=== PATIENT | male | born 1980 | race Caucasian/White ===

== ENCOUNTER 2017-11-30 10:09 | Emergency (ER) | payer OTHER ==
[~2017-11-30] VITALS: Ht 205.7 cm; Wt 108.9 kg
[~2017-11-30 10:09] MED LIST: ALBU90OI; AMIO200 PO; ASPI81CH PO; BUPR150ER PO; CEFD300 PO; Coreg6.25 MG PO; FURO20 PO; LISI5 PO; Micro-K10 MEQ PO; Prednisone20 MG PO
[2017-11-30] MEDS ORDERED: IBUP800 PO (11:19)
[2017-11-30] MEDS ORDERED: Robaxin500 MG PO (11:19)
== END 2017-11-30 11:22 | disposition home or self-care (01) ==
LOC: ER 10:09
DX: M62.830 Muscle spasm of back (principal); I11.0 Hypertensive heart disease with heart failure; I50.9 Heart failure, unspecified; F17.210 Nicotine dependence, cigarettes, uncomplicated; Z79.899 Other long term (current) drug therapy; Z79.82 Long term (current) use of aspirin
CPT/HCPCS: 99283

== ENCOUNTER 2019-12-28 07:11 | Emergency (ER) | payer OTHER ==
[~2019-12-28] VITALS: Ht 182.9 cm; Wt 113.4 kg
[~2019-12-28 07:11] MED LIST changes: +IBUP800 PO; +Robaxin500 MG PO
[2019-12-28 07:40] LABS: BASOPHILS ABSOLUTE AUTO 0.08 K/mm3 (0.00-0.23); BASOPHILS PERCENT AUTO 1 % (0-2); EOSINOPHILS ABSOLUTE AUTO 0.25 K/mm3 (0.00-0.68); EOSINOPHILS PERCENT AUTO 2 % (0-6); Hematocrit 49.8 % (37.0-53.0); Hemoglobin 16.4 g/dL (13.5-17.5); IMMATURE GRAN ABSOLUTE AUTO 0.08 K/mm3 (0.00-0.10); IMMATURE GRAN PERCENT AUTO 1 % (0-1); LYMPHOCYTES ABSOLUTE AUTO 2.62 K/mm3 (0.84-5.20); LYMPHOCYTES PERCENT AUTO 17 % (21-46); MONOCYTES ABSOLUTE AUTO 1.49 K/mm3 (0.16-1.47); MONOCYTES PERCENT AUTO 10 % (4-13); Mean Corpuscular HGB 29.8 pg (26.0-34.0); Mean Corpuscular HGB Conc 32.9 g/dL (31.5-36.5); Mean Corpuscular Volume 90 fL (80-100); Mean Platelet Volume 9.4 fL (9.1-12.4); NEUTROPHILS ABSOLUTE AUTO 10.98 K/mm3 (1.96-9.15); NEUTROPHILS PERCENT AUTO 71 % (41-73); Platelet Count 264 K/mm3 (150-400); RDW Coefficient Variation 13.8 % (11.7-14.2); RDW Standard Deviation 46.4 fL (35.1-46.3); Red Blood Cell Count 5.51 M/mm3 (4.30-5.90)
[2019-12-28 08:15] LABS: Alanine Aminotransfer (ALT/SGP 31 U/L (12-78); Albumin, Blood 4.3 g/dL (3.4-5.0); Albumin/Globulin Ratio 1.2 (0.8-1.8); Alk Phos 91 U/L (50-136); Anion Gap 5 mmol/L (6-16); Aspartate Aminotrans (AST/SGOT 16 U/L (12-37); Bilirubin, Total 0.8 mg/dL (0.1-1.0); Blood Urea Nitrogen 20 mg/dL (8-24); Bun/Creatinine Ratio 22.3 (12.0-20.0); CO2, Blood 31 mmol/L (21-32); Calcium, Blood 9.8 mg/dL (8.5-10.1); Chloride, Blood 99 mmol/L (98-108); Globulin, Blood 3.7 g/dL (2.2-4.0); Glomerular Filtration Rate >60 (60-); Glucose, Blood 101 mg/dL (70-99); Potassium, Blood 3.9 mmol/L (3.5-5.5); Sodium, Blood 135 mmol/L (136-145); Troponin I <0.015 ng/mL (0.000-0.040)
[2019-12-28] MEDS ORDERED: ALBU90OI INH (09:13)
[2019-12-28] MEDS ORDERED: PRED20 PO (09:13)
[2019-12-28] MEDS ORDERED: AZIT250 PO (09:13)
== END 2019-12-28 09:20 | disposition home or self-care (01) ==
LOC: ER 07:11
PROVIDERS: Emergency Medicine
DX: J44.1 Chronic obstructive pulmonary disease with (acute) exacerbation (principal); I11.0 Hypertensive heart disease with heart failure; I50.9 Heart failure, unspecified; I25.2 Old myocardial infarction; E78.5 Hyperlipidemia, unspecified; F17.210 Nicotine dependence, cigarettes, uncomplicated; Z79.899 Other long term (current) drug therapy
CPT/HCPCS: 36415; 71045; 80053; 83880; 84484; 85025; 93005; 93010; 94640; 94644; 94664; 96374; 99284-25; J2930

== ENCOUNTER 2020-01-01 21:53 | Inpatient (IN) | payer OTHER, MEDICARE ==
[~2020-01-01] VITALS: Ht 182.9 cm; Wt 109.6 kg
[~2020-01-01 21:53] MED LIST changes: -ALBU90OI; +ALBU90OI INH; -ASPI81CH PO; +ASPIR 8181 M1 PO; +AZIT250 PO; +CARV25 PO; -Coreg6.25 MG PO; +LISI20 PO; -LISI5 PO; +PRED20 PO
[2020-01-01 22:38] LABS: PCO2 Arterial 23.7 mmHg (35-45); pH Blood Arterial 7.54 (7.35-7.45)
[2020-01-01 22:38] LABS: EOSINOPHILS PERCENT AUTO 0 % (0-6); Hematocrit 50.5 % (37.0-53.0); Hemoglobin 17.7 g/dL (13.5-17.5); IMMATURE GRAN ABSOLUTE AUTO 0.38 K/mm3 (0.00-0.10); IMMATURE GRAN PERCENT AUTO 2 % (0-1); LYMPHOCYTES ABSOLUTE AUTO 0.86 K/mm3 (0.84-5.20); LYMPHOCYTES PERCENT AUTO 4 % (21-46); MONOCYTES ABSOLUTE AUTO 0.72 K/mm3 (0.16-1.47); MONOCYTES PERCENT AUTO 4 % (4-13); Mean Corpuscular HGB 29.2 pg (26.0-34.0); Mean Platelet Volume 9.4 fL (9.1-12.4); NEUTROPHILS ABSOLUTE AUTO 18.78 K/mm3 (1.96-9.15); NEUTROPHILS PERCENT AUTO 90 % (41-73); Platelet Count 179 K/mm3 (150-400); RDW Coefficient Variation 13.3 % (11.7-14.2); RDW Standard Deviation 40.9 fL (35.1-46.3); Red Blood Cell Count 6.06 M/mm3 (4.30-5.90); White Blood Cell Count 20.79 K/mm3 (4.00-11.30)
[2020-01-01 22:39] LABS: BASOPHILS ABSOLUTE AUTO 0.05 K/mm3 (0.00-0.23); BASOPHILS PERCENT AUTO 0 % (0-2); Mean Corpuscular Volume 83 fL (80-100)
[2020-01-01 22:55] LABS: Alanine Aminotransfer (ALT/SGP 34 U/L (12-78); Albumin, Blood 3.4 g/dL (3.4-5.0); Albumin/Globulin Ratio 0.8 (0.8-1.8); Alk Phos 87 U/L (50-136); Anion Gap 11 mmol/L (6-16); Aspartate Aminotrans (AST/SGOT 27 U/L (12-37); Bilirubin, Total 1.5 mg/dL (0.1-1.0); Blood Urea Nitrogen 19 mg/dL (8-24); Bun/Creatinine Ratio 17.6 (12.0-20.0); CO2, Blood 20 mmol/L (21-32); Calcium, Blood 8.9 mg/dL (8.5-10.1); Chloride, Blood 98 mmol/L (98-108); Creatinine, Blood 1.08 mg/dL (0.60-1.20); Globulin, Blood 4.1 g/dL (2.2-4.0); Glomerular Filtration Rate >60 (60-); Glucose, Blood 128 mg/dL (70-99); Sodium, Blood 129 mmol/L (136-145); Total Protein, Blood 7.5 g/dL (6.4-8.2)
[2020-01-01 23:02] LABS: International Normalized Ratio 1.28; Prothrombin Time Results 13.5 Sec (9.7-11.5)
[2020-01-02 02:14] LABS: Source, Urine Catheter
[2020-01-02 02:17] LABS: Appearance, Urine Clear (Clear); Bilirubin, Urine Neg (Neg); Blood, Urine 1+ (Neg); Color, Urine Amber (P-Yellow); Glucose Qualitative, Urine Neg (Neg); Ketones, Urine 2+ (Neg); Leukocyte Esterase, Urine Neg (Neg); Nitrite, Urine Neg (Neg); Protein, Urine 3+ (Neg); Urobilinogen, Urine 2+ (Normal)
[2020-01-02 02:23] LABS: Amorphous Light (0-Heavy); Bacteria Few /hpf; Granular Casts 0-2 /lpf (0); Hyaline Casts 0-2 /lpf (0-2); Red Blood Cells, Urine 0-2 /hpf (0-2); Squamous Epithelial Cells Not Seen /hpf (Few)
[2020-01-02 02:27] LABS: U Amphetamine Screen DETECTED; U Barbituate Screen Not Detected; U Benzodiazapine Screen Not Detected; U Buprenorphine Screen Not Detected; U Cannabinoids Screen Not Detected; U Cocaine Screen Not Detected; U Methadone Screen Not Detected; U Methamphetamine Screen DETECTED; U Opiates Screen Not Detected; U Oxycodone Screen Not Detected; U Phencyclidine Screen Not Detected; U Propoxyphene Screen Not Detected
--- NOTE | 2020-01-02 03:06 | NUR ---
PT TO ICU 14 VIA [facility] WITH ED RN, PT TRANSFERED SELF FROM ED GURNEY TO HOSPITAL BED. PT ORIENTED TO SELF, EVENT, LOCATION, YEAR AND FOLLOWING DIRECTIONS, PT STS HIS BROTHER BROUGHT HIM TO THE HOSPITAL, COMMUNICATING APPROPRIATELY WITH STAFF. PT REPORTS NEED TO VOID, SITS UP AT BEDSIDE TO USE URINAL, UNABLE TO VOID, ORDER FOR OVALLES CATHETER. CATHETER PLACED WITH APPROX 500ml IMMEDIATE RETURN OF DARK YELLOW URINE, SPECIMEN SENT TO LAB. PT PROFUSELY DIAPHORETIC, DIFFICULTY ATTACHING MONITOR CARDIAC LEADS TO PT. MONITOR SHOWS SINUS RHYTHM WITH HR 100-110, BP STABLE, O2 SATURATIONS 92% ON RA. AICD TO UPPER LEFT CHEST, PT CANNOT REMEMBER WHEN IT WAS PLACED. WEAKNESS NOTED T/O BUT PT IS ABLE TO REPOSITION SELF IN BED. REDNESS NOTED TO R FLANK, SMALL ABCESS TO LEFT AC, PT DENIES RECENT DRUG USE. PT VERY DROWSY, DIFFICULTY COMPLETING MED REC D/T FALLING ASLEEP, VERY DIFFICULT TO AROUSE, AROUSES TO NOXIOUS STIMULI. UPDATED DR GREGORIO ON TOX SCREEN RESULTS. CPAP PLACED ON PT, TOLERATING WELL.
[2020-01-02 03:40] LABS: Adenovirus Not Detected (NOT DETECT); Bordetella pertussis Not Detected (NOT DETECT); Chlamydophila pneumoniae Not Detected (NOT DETECT); Coronavirus 229E Not Detected (NOT DETECT); Coronavirus HKU1 Not Detected (NOT DETECT); Coronavirus NL63 Not Detected (NOT DETECT); Coronavirus OC43 Not Detected (NOT DETECT); Human Metapneumovirus Not Detected (NOT DETECT); Human Rhinovirus/Enterovirus Not Detected (NOT DETECT); Influenza A/2009-H1 Not Detected (NOT DETECT); Influenza A/H1 Not Detected (NOT DETECT); Influenza A/H3 Not Detected (NOT DETECT); Influenza B Not Detected (NOT DETECT); Mycoplasma pneumoniae Not Detected (NOT DETECT); Parainfluenza Virus 1 Not Detected (NOT DETECT); Parainfluenza Virus 2 Not Detected (NOT DETECT); Parainfluenza Virus 3 Not Detected (NOT DETECT); Parainfluenza Virus 4 Not Detected (NOT DETECT); Respiratory Syncytial Virus Not Detected (NOT DETECT)
--- NOTE | 2020-01-02 06:04 | NUR ---
SHIFT SUMMARY NO ACUTE CHANGES T/O NIGHT, PT REMAINS AROUSABLE TO VERBAL/NOXIOUS STIMULI, ORIENTED TO SELF, LOCATION, EVENT AND FOLLOWING DIRECTIONS. PT TOLERATES CPAP T/O NIGHT, O2 SATURATIONS>95%, MONITOR SHOWS SINUS RHYTHM, HR 80'S, BP STABLE, PTS TEMPERATURE HAS DECREASED TO 96.3, WARM BLANKET PROVIDED AND TEMPERATURE IN ROOM INCREASED. PT LESS DIAPHORETIC COMPARED TO ARRIVAL TO UNIT. PT DAMICO AND REPOSITIONS SELF IN BED. CALL LIGHT WITHIN REACH.
--- NOTE | 2020-01-02 07:35 | NUR ---
ASSUMED CARE REPORT FROM ANNIE ESPINOZA. PATIENT ASLEEP WITH CPAP MASK ON. IN ENHANCED ISOLATION FOR R/O COVID. PROLONGED QT NOTED ON MONITOR. QTc 0.616
--- NOTE | 2020-01-02 09:30 | NUR ---
MD VISIT DR. LEMON IN 829.
--- NOTE | 2020-01-02 09:48 | NUR ---
ECHO COMPLETED. PATIENT WAKES WHEN SPOKEN TOO, BUT FALLS BACK TO SLEEP. WILL HOLD PO MEDS UNTIL FULLY AWAKE. POSITIVE BLOOD CULTURES, DR. LEMON NOTIFIED. WARM BLANKETS PLACED FOR TEMP 96.3
--- NOTE | 2020-01-02 10:02 | NUR ---
Echocardiogram completed.
[2020-01-02 12:19] LABS: BASOPHILS ABSOLUTE AUTO 0.07 K/mm3 (0.00-0.23); BASOPHILS PERCENT AUTO 0 % (0-2); EOSINOPHILS ABSOLUTE AUTO 0.01 K/mm3 (0.00-0.68); EOSINOPHILS PERCENT AUTO 0 % (0-6); Hematocrit 49.8 % (37.0-53.0); Hemoglobin 17.1 g/dL (13.5-17.5); IMMATURE GRAN ABSOLUTE AUTO 0.27 K/mm3 (0.00-0.10); IMMATURE GRAN PERCENT AUTO 1 % (0-1); LYMPHOCYTES ABSOLUTE AUTO 1.49 K/mm3 (0.84-5.20); LYMPHOCYTES PERCENT AUTO 7 % (21-46); MONOCYTES ABSOLUTE AUTO 1.05 K/mm3 (0.16-1.47); MONOCYTES PERCENT AUTO 5 % (4-13); Mean Corpuscular HGB 29.8 pg (26.0-34.0); Mean Corpuscular HGB Conc 34.3 g/dL (31.5-36.5); Mean Platelet Volume 9.5 fL (9.1-12.4); NEUTROPHILS ABSOLUTE AUTO 17.72 K/mm3 (1.96-9.15); NEUTROPHILS PERCENT AUTO 86 % (41-73); Platelet Count 142 K/mm3 (150-400); RDW Coefficient Variation 13.8 % (11.7-14.2); RDW Standard Deviation 44.3 fL (35.1-46.3); Red Blood Cell Count 5.73 M/mm3 (4.30-5.90); White Blood Cell Count 20.61 K/mm3 (4.00-11.30)
[2020-01-02 12:26] LABS: Mean Corpuscular Volume 87 fL (80-100)
--- NOTE | 2020-01-02 12:29 | NUR ---
PATIENT AWAKE. SPOKE BY PHONE TO AND FATHER. BIOX 97% ON RA. WILL CONTACT RE: DIET AND POSSIBLE STATUS CHANGE
[2020-01-02 12:40] LABS: Alanine Aminotransfer (ALT/SGP 39 U/L (12-78); Albumin, Blood 2.8 g/dL (3.4-5.0); Albumin/Globulin Ratio 0.7 (0.8-1.8); Alk Phos 84 U/L (50-136); Anion Gap 9 mmol/L (6-16); Aspartate Aminotrans (AST/SGOT 27 U/L (12-37); Blood Urea Nitrogen 17 mg/dL (8-24); Bun/Creatinine Ratio 20.5 (12.0-20.0); CO2, Blood 25 mmol/L (21-32); Calcium, Blood 8.5 mg/dL (8.5-10.1); Chloride, Blood 102 mmol/L (98-108); Creatinine, Blood 0.83 mg/dL (0.60-1.20); Globulin, Blood 3.9 g/dL (2.2-4.0); Glomerular Filtration Rate >60 (60-); Glucose, Blood 183 mg/dL (70-99); Potassium, Blood 3.8 mmol/L (3.5-5.5); Sodium, Blood 136 mmol/L (136-145); Total Protein, Blood 6.7 g/dL (6.4-8.2)
--- NOTE | 2020-01-02 15:27 | NUR ---
CONTINUES DIAPHORETIC. FACE WIPED SEVERAL TIMES. TEMP 96.6
--- NOTE | 2020-01-02 16:43 | NUR ---
PATIENT CONTINUES TO SLEEP WHEN NOT DISTURBED. PCU STATUS. REMAINS OFF CPAP ON RA. BIOX 97%-100. POSITIONS SELF TO COMFORT.
--- NOTE | 2020-01-02 19:14 | NUR ---
WILL BRING IN MED BOTTLES FOR RECONCILE AND PHONE CHARTERED ACCOUNTANT. PATIENT BACK TO SLEEP AFTER DINNER. REPORT GIVEN TO ANNIE VANN
--- NOTE | 2020-01-02 19:30 | NUR ---
ASSUMED CARE NOTE: ASSUMED CARE OF PT AT 1900, RECEVIED REPORT FROM NIKKY VALENCIA. PT IS ALERT AND ORIENTEDX3, IS ABLE TO RECALL RECENT AND REMOTE EVENTS. PT ON RA WITH SPO2 AT 98%. PT DENIES COUGH/SOB AT THIS TIME. PT IS IN SINUS RHYTHM WITH PVC'S HR IN THE 90'S. ABDOMEN SOFT AND NON-TENDER. OVALLES PATENT AND DRAINING PAZ, CLOUDY URINE. SBP OF 90, BP MEDS HELD. PT IS VERY DIAPHORETIC, LINENS CHANGED. PT IS STEADY ON FEET, NEEDS SBA FOR AMBULATION. BROUGHT IN HOME MEDICATION. REVEIWED HOME MEDS, MEDS SENT TO PHARMACY. BED AT LOWEST LEVEL, CALL LIGHT WITHIN REACH
--- NOTE | 2020-01-02 23:43 | NUR ---
PT CONTINUES TO BE DIAPHORETIC. NO CHANGES SINCE LAST NOTE. PT HAS BEEN SLEEPING. PT REPOSITIONS SELF. WILL CONTINUE TO MONITOR
[2020-01-03 03:48] LABS: BASOPHILS ABSOLUTE AUTO 0.06 K/mm3 (0.00-0.23); BASOPHILS PERCENT AUTO 0 % (0-2); EOSINOPHILS ABSOLUTE AUTO 0.01 K/mm3 (0.00-0.68); EOSINOPHILS PERCENT AUTO 0 % (0-6); Hematocrit 47.9 % (37.0-53.0); Hemoglobin 16.1 g/dL (13.5-17.5); IMMATURE GRAN ABSOLUTE AUTO 0.18 K/mm3 (0.00-0.10); IMMATURE GRAN PERCENT AUTO 1 % (0-1); LYMPHOCYTES ABSOLUTE AUTO 1.61 K/mm3 (0.84-5.20); LYMPHOCYTES PERCENT AUTO 7 % (21-46); MONOCYTES ABSOLUTE AUTO 1.98 K/mm3 (0.16-1.47); MONOCYTES PERCENT AUTO 9 % (4-13); Mean Corpuscular HGB Conc 33.6 g/dL (31.5-36.5); Mean Corpuscular Volume 86 fL (80-100); Mean Platelet Volume 9.4 fL (9.1-12.4); NEUTROPHILS ABSOLUTE AUTO 18.22 K/mm3 (1.96-9.15); NEUTROPHILS PERCENT AUTO 83 % (41-73); Platelet Count 142 K/mm3 (150-400); Red Blood Cell Count 5.55 M/mm3 (4.30-5.90); White Blood Cell Count 22.06 K/mm3 (4.00-11.30)
[2020-01-03 04:05] LABS: Anion Gap 3 mmol/L (6-16); Blood Urea Nitrogen 22 mg/dL (8-24); CO2, Blood 31 mmol/L (21-32); Calcium, Blood 8.8 mg/dL (8.5-10.1); Chloride, Blood 105 mmol/L (98-108); Creatinine, Blood 0.71 mg/dL (0.60-1.20); Glomerular Filtration Rate >60 (60-); Glucose, Blood 157 mg/dL (70-99); Potassium, Blood 4.7 mmol/L (3.5-5.5); Sodium, Blood 139 mmol/L (136-145)
--- NOTE | 2020-01-03 04:12 | NUR ---
UPDATE: NO CHANGES SINCE LAST ASSESSMENT. PT HAS BEEN SLEEPING WELL. AWOKE 30 MINUTES AGO, BEDDING CHANGED, AND 960ML OF WATER GIVEN
--- NOTE | 2020-01-03 05:33 | NUR ---
SHIFT SUMMARY: PT REMAINS ALERT AND ORIENTED AND ON RA WITH SPO2 ABOVE 95% PT HAS BEEN DIAPHORETIC T/O SHIFT, PT AFEBRILE, BEDDING CHANGED MULTIPLE TIMES THIS SHIFT. PT HAS BEEN IN SINUS RHYTHM WITH HR BETWEEN 80-100'S. PT HAD A SHORT-RUN OF VTACH THIS SHIFT, PT STATES HE FELT NO DIFFRENT. PT HAS DENIED NAUSEA/PAIN/SOB THIS SHIFT. VSS. OVALLES PATENT AND DRAINING PAZ CLOUDY URINE. WILL CONTINUE TO MONITOR PT UNTIL REPORT IS GIVEN TO ONCOMING SHIFT.
--- NOTE | 2020-01-03 08:00 | NUR ---
ASSUMED CARE RECEIVED REPORT FROM ANNIE KING. PT IS AWAKE IN BED, ALERT & ORIENTED X 3. HE HAS A PATENT OVALLES CATHETER DRAINING YELLOW URINE. PT DENIES SOB, CHEST PAIN AND NAUSEA. BED LOW AND LOCKED, CALL LIGHT WITHIN REACH.
--- NOTE | 2020-01-03 09:20 | NUR ---
PT INDEPENDENT IN BED. REPOSITIONS SELF. I ASKED HIM IF HE WOULD LIKE REMINDERS FOR REPOSITINOING AND HE SAID "NO".
[2020-01-03 11:29] LABS: Vancomycin, Trough 10.4 ug/mL (5.0-10.0)
--- NOTE | 2020-01-03 11:31 | NUR ---
UPDATE PT GOT SEEN BY DR. SMITH, AND IS UNHAPPY WITH HER ASSESSMENT/EVALUATION. HE IS WANTING TO LEAVE, BUT IS WANTING SOMEONE TO TELL HIM HE "...WONT " IF HE DOES. DR. SMITH TOLD ME SHE WILL REVIEW HIS CASE BUT DOESN'T THINK IT WOULD BE SAFE OR SMART TO SEND HIM HOME JUST YET. HE IS CONSIDERING LEAVING AMA. CURRENTLY HE IS TAKING A SHOWER OFF TELLY. WILL BE PLACED BACK ON AFTER.
--- NOTE | 2020-01-03 11:34 | NUR ---
WRAPPING PT IVs HE SAID TO JUST TAKE THEM OUT. I EXPLAIED WE DON'T REMOVE THEM FOR SHOWERS. HE SAID HE KNEW AND THAT HE WAS GOING HOME AFTER HE SHOWERED. HE KNOWS THE DR HAS NOT DISCHARED HIM AND THAT HE WILL HAVE TO SIGN AN AMA PAPER. HE ALSO SAID HE WANTS TO BE TOLD HE WONT IF HE LEAVES. HE WAS TOLD NO ONE CAN SAY THAT FOR SURE. HE IS REQUESTING A SECOND OPINION. RN NOTIFIED.
--- NOTE | 2020-01-03 11:57 | NUR ---
PT BACK FROM SHOWER, EATING LUNCH. TALKING WITH ASSISTANT ACTIVITIES DIRECTOR - DISCUSSING HIS OPTIONS REGARDING EITHER LEAVING AMA OR NOT.
--- NOTE | 2020-01-03 16:57 | NUR ---
Initial spiritual care note: Per admit trigger, I was tasked to meet with Driss to offer education about advanced care planning. He told me he was not interested and "really did not see the need." I provided advanced directive packet on bedisde table.
--- NOTE | 2020-01-03 17:30 | NUR ---
AT 1725 PT WALKED OUT AMA. I INFORMED HIM OF THE RISKS OF LEAVING AGAINST MEDICAL ADVICE, AND THE BENEFITS OF STAYING IN THE HOSPITAL TO RECEIVE THE NECESSARY CARE, MEDICINE AND MONITORING REQUIRED FOR HIS CURRENT ILLNESS. I TOLD HIM THAT HE MOST LIKELY WILL NOT GET THIS COVERED BY HIS INSURANCE. HE WAS ADAMENT AND INSISTED HE NEEDED TO LEAVE. HE WAS ALERT AND ORIENTED X 4. I WAS WITNESS, VEENA - ANNIE AND LORETTA Orozco CNA, II HAD TALKED TO HIM WELL. DR. SMITH TOLD HIM THE RISKS OF LEAVING EARLIER IN THE DAY. BECAUSE EARLIER IN THE DAY HE HAD MENTIONED WANTING TO LEAVE, EVEN IF IT HAD TO BE AMA. AFTER A SHOWER AND LUNCH HE AGREED TO STAY AT LEAST ONE MORE DAY. WHEN I TOLD HIM HE WAS TRANSFERRING TO THE MEDICAL FLOOR AND HE SNAPPED, SAID SOME RUDE COMMENTS AND THEN INSISTED ON LEAVING AMA. I REMOVED THE IV OUT OF HIS RIGHT FOREARM, CATHETER TIP INTACT. HE WAS AGITATED INITIALLY, BUT CALMED DOWN AND STILL MADE THE DECISION TO LEAVE.
== END 2020-01-03 17:27 | disposition left against medical advice (07) | DRG 871 ==
LOC: ER 21:53 → ICUW 23:58 → ER 01-02 00:56 → ICUW 01-02 01:00
PROVIDERS: Emergency Medicine; Internal Medicine; Pharmacist; ADMIT Internal Medicine
PROC: 8E0ZXY6 Isolation (ICD-10-PCS; principal; 2020-01-01)
DX: A41.01 Sepsis due to Methicillin susceptible Staphylococcus aureus (principal); G92 Toxic encephalopathy; J18.9 Pneumonia, unspecified organism; I42.0 Dilated cardiomyopathy; I47.2 Ventricular tachycardia; F19.10 Other psychoactive substance abuse, uncomplicated; G47.33 Obstructive sleep apnea (adult) (pediatric); E78.5 Hyperlipidemia, unspecified; J44.9 Chronic obstructive pulmonary disease, unspecified; Z20.828 Contact with and (suspected) exposure to other viral communicable diseases; I11.0 Hypertensive heart disease with heart failure; I50.9 Heart failure, unspecified; F17.210 Nicotine dependence, cigarettes, uncomplicated; I25.2 Old myocardial infarction; Z95.810 Presence of automatic (implantable) cardiac defibrillator; Z79.82 Long term (current) use of aspirin; Z79.52 Long term (current) use of systemic steroids
CPT/HCPCS: 0099U; 36415; 36600; 51703; 70450; 71045; 80048; 80053; 80202; 81001; 82140; 82803; 82947; 83605; 83880; 84145; 85025; 85610; 85730; 87040; 87077; 87086; 87147; 87186; 93005; 93010; 93306; 94640; 94660; 96365; 96367; 96375; 99285-25; A9270-GY; J0456; J0692; J0696; J1650; J2543; J2930; J3370; J7030; J7050; U0003

== ENCOUNTER 2020-01-04 11:42 | Inpatient (IN) | payer OTHER ==
[~2020-01-04] VITALS: Ht 182.9 cm; Wt 108.1 kg
[2020-01-04 13:36] LABS: BASOPHILS ABSOLUTE AUTO 0.07 K/mm3 (0.00-0.23); BASOPHILS PERCENT AUTO 1 % (0-2); EOSINOPHILS ABSOLUTE AUTO 0.15 K/mm3 (0.00-0.68); EOSINOPHILS PERCENT AUTO 1 % (0-6); Hematocrit 47.6 % (37.0-53.0); IMMATURE GRAN ABSOLUTE AUTO 0.22 K/mm3 (0.00-0.10); IMMATURE GRAN PERCENT AUTO 2 % (0-1); LYMPHOCYTES PERCENT AUTO 17 % (21-46); MONOCYTES ABSOLUTE AUTO 1.23 K/mm3 (0.16-1.47); MONOCYTES PERCENT AUTO 9 % (4-13); Mean Corpuscular HGB 29.6 pg (26.0-34.0); Mean Corpuscular HGB Conc 33.6 g/dL (31.5-36.5); Mean Corpuscular Volume 88 fL (80-100); Mean Platelet Volume 10.5 fL (9.1-12.4); NEUTROPHILS PERCENT AUTO 71 % (41-73); Platelet Count 164 K/mm3 (150-400); RDW Coefficient Variation 14.6 % (11.7-14.2); RDW Standard Deviation 47.1 fL (35.1-46.3); White Blood Cell Count 13.07 K/mm3 (4.00-11.30)
[2020-01-04 14:02] LABS: Alanine Aminotransfer (ALT/SGP 32 U/L (12-78); Albumin, Blood 3.1 g/dL (3.4-5.0); Albumin/Globulin Ratio 0.8 (0.8-1.8); Alk Phos 84 U/L (50-136); Anion Gap 8 mmol/L (6-16); Aspartate Aminotrans (AST/SGOT 16 U/L (12-37); Bilirubin, Total 0.8 mg/dL (0.1-1.0); Blood Urea Nitrogen 17 mg/dL (8-24); Bun/Creatinine Ratio 21.1 (12.0-20.0); CO2, Blood 27 mmol/L (21-32); Chloride, Blood 103 mmol/L (98-108); Creatinine, Blood 0.81 mg/dL (0.60-1.20); Glomerular Filtration Rate >60 (60-); Glucose, Blood 89 mg/dL (70-99); Sodium, Blood 138 mmol/L (136-145); Total Protein, Blood 7.1 g/dL (6.4-8.2)
--- NOTE | 2020-01-04 16:06 | NUR ---
PT ADMITTED PT ADMITTED IN STABLE CONDITION WITH VSS. PT ORIENTED TO ROOM. CALL LIGHT IN REACH. SNACK & WATER PROVIDED. PT DENIES PAIN AT THIS TIME. WILL CONTINUE TO MOINTOR UNTIL TURNOVER IS COMPLETE.
--- NOTE | 2020-01-05 04:42 | NUR ---
SHIFT SUMMARY: VSS. AFEB. PULSE 103. HR IRREGULAR. AAOX3. MAKES NEEDS KNOWN. INDEPENDENT IN ROOM. IV INFUSED ORDERED. INSPIRATORY WHEEZE AUSCULTED IN B LOBES. PT DENIES SOB. NO COUGHING. PT REPORTS MOUTH PAIN. STATES IT HAS BEEN GOING ON FOR A WHILE. HE IS OVERDUE FOR DENTAL CARE. WILL PASS THIS INFO TO DAYSHIFT. NO ACUTE ISSUES OVERNIGHT. PT IS RESTING QUIETLY AT THIS TIME. WILL CONT TO MONITOR.
[2020-01-05 05:32] LABS: BASOPHILS ABSOLUTE AUTO 0.11 K/mm3 (0.00-0.23); BASOPHILS PERCENT AUTO 1 % (0-2); EOSINOPHILS ABSOLUTE AUTO 0.16 K/mm3 (0.00-0.68); EOSINOPHILS PERCENT AUTO 1 % (0-6); Hemoglobin 16.4 g/dL (13.5-17.5); IMMATURE GRAN ABSOLUTE AUTO 0.21 K/mm3 (0.00-0.10); IMMATURE GRAN PERCENT AUTO 2 % (0-1); LYMPHOCYTES ABSOLUTE AUTO 2.13 K/mm3 (0.84-5.20); LYMPHOCYTES PERCENT AUTO 15 % (21-46); MONOCYTES ABSOLUTE AUTO 1.38 K/mm3 (0.16-1.47); MONOCYTES PERCENT AUTO 10 % (4-13); Mean Corpuscular HGB 29.2 pg (26.0-34.0); Mean Corpuscular HGB Conc 33.5 g/dL (31.5-36.5); Mean Corpuscular Volume 87 fL (80-100); Mean Platelet Volume 9.9 fL (9.1-12.4); NEUTROPHILS ABSOLUTE AUTO 10.24 K/mm3 (1.96-9.15); NEUTROPHILS PERCENT AUTO 72 % (41-73); Platelet Count 182 K/mm3 (150-400); RDW Coefficient Variation 14.4 % (11.7-14.2); RDW Standard Deviation 46.6 fL (35.1-46.3); Red Blood Cell Count 5.61 M/mm3 (4.30-5.90); White Blood Cell Count 14.23 K/mm3 (4.00-11.30)
[2020-01-05 05:54] LABS: Anion Gap 8 mmol/L (6-16); Blood Urea Nitrogen 19 mg/dL (8-24); Bun/Creatinine Ratio 28.4 (12.0-20.0); CO2, Blood 26 mmol/L (21-32); Calcium, Blood 8.9 mg/dL (8.5-10.1); Chloride, Blood 103 mmol/L (98-108); Creatinine, Blood 0.67 mg/dL (0.60-1.20); Glomerular Filtration Rate >60 (60-); Glucose, Blood 90 mg/dL (70-99); Potassium, Blood 4.2 mmol/L (3.5-5.5); Sodium, Blood 137 mmol/L (136-145)
--- NOTE | 2020-01-05 15:15 | NUR ---
PT LEFT AMA. PT STATED "I AM THE MOST RACIST PERSON YOU WILL MEET AND THEY GIVE ME A BLACK DR" HE WAS REQUESTING A NEW DR. TO TAKE OVER HIS CARE, AND REQUEST TO TALK TO PT ADVOCATE. THE CHARGE NURSE AND I SPOKE WITH DR. PHILIPPE REGARDING A CHANGE IN PROVIDER, THE REQUEST WAS DECLINED. CHAGRE NURSE DISCUSSED WITH THE PT ABOUT THIS AND HE CHOSE TO LEAVE. IV REMOVED AND PT AMBULATED FROM THE FACILITY.
== END 2020-01-05 12:00 | disposition left against medical advice (07) | DRG 871 ==
LOC: ER 11:42 → MEDS 14:23
PROVIDERS: Physician Assistant; ADMIT Internal Medicine
DX: A41.01 Sepsis due to Methicillin susceptible Staphylococcus aureus (principal); J18.9 Pneumonia, unspecified organism; I42.0 Dilated cardiomyopathy; I50.22 Chronic systolic (congestive) heart failure; Z79.82 Long term (current) use of aspirin; R65.20 Severe sepsis without septic shock; I25.2 Old myocardial infarction; E78.5 Hyperlipidemia, unspecified; J44.9 Chronic obstructive pulmonary disease, unspecified; Z95.0 Presence of cardiac pacemaker; G47.33 Obstructive sleep apnea (adult) (pediatric); F15.10 Other stimulant abuse, uncomplicated; F10.10 Alcohol abuse, uncomplicated; F17.210 Nicotine dependence, cigarettes, uncomplicated; I11.0 Hypertensive heart disease with heart failure
CPT/HCPCS: 36415; 80048; 80053; 85025; 87040; 96365; 99284-25; J0690; J7050

== ENCOUNTER 2021-01-06 02:39 | Emergency (ER) | payer OTHER ==
[~2021-01-06] VITALS: Ht 167.6 cm; Wt 108.9 kg
[2021-01-06 03:39] LABS: BASOPHILS ABSOLUTE AUTO 0.09 K/mm3 (0.00-0.23); BASOPHILS PERCENT AUTO 1 % (0-2); EOSINOPHILS ABSOLUTE AUTO 0.19 K/mm3 (0.00-0.68); EOSINOPHILS PERCENT AUTO 2 % (0-6); Hematocrit 51.9 % (37.0-53.0); Hemoglobin 17.4 g/dL (13.5-17.5); IMMATURE GRAN ABSOLUTE AUTO 0.04 K/mm3 (0.00-0.10); IMMATURE GRAN PERCENT AUTO 0 % (0-1); LYMPHOCYTES ABSOLUTE AUTO 3.49 K/mm3 (0.84-5.20); LYMPHOCYTES PERCENT AUTO 30 % (21-46); MONOCYTES PERCENT AUTO 6 % (4-13); Mean Corpuscular HGB 30.2 pg (26.0-34.0); Mean Corpuscular HGB Conc 33.5 g/dL (31.5-36.5); Mean Corpuscular Volume 90 fL (80-100); Mean Platelet Volume 9.9 fL (9.1-12.4); NEUTROPHILS ABSOLUTE AUTO 7.09 K/mm3 (1.96-9.15); NEUTROPHILS PERCENT AUTO 61 % (41-73); Platelet Count 292 K/mm3 (150-400); RDW Coefficient Variation 14.6 % (11.7-14.2); RDW Standard Deviation 47.9 fL (35.1-46.3); Red Blood Cell Count 5.77 M/mm3 (4.30-5.90)
[2021-01-06 03:47] LABS: Anion Gap 5 mmol/L (6-16); Blood Urea Nitrogen 23 mg/dL (8-24); Bun/Creatinine Ratio 20.5 (12.0-20.0); CO2, Blood 27 mmol/L (21-32); Calcium, Blood 9.1 mg/dL (8.5-10.1); Chloride, Blood 104 mmol/L (98-108); Creatinine, Blood 1.12 mg/dL (0.60-1.20); Glomerular Filtration Rate >60 (60-); Glucose, Blood 120 mg/dL (70-99); Potassium, Blood 4.3 mmol/L (3.5-5.5); Sodium, Blood 136 mmol/L (136-145)
== END 2021-01-06 05:51 | disposition home or self-care (01) ==
LOC: ER 02:39
PROVIDERS: Emergency Medicine
DX: I11.0 Hypertensive heart disease with heart failure (principal); I50.9 Heart failure, unspecified; I25.2 Old myocardial infarction; E78.5 Hyperlipidemia, unspecified; J44.9 Chronic obstructive pulmonary disease, unspecified; F17.210 Nicotine dependence, cigarettes, uncomplicated; Z79.82 Long term (current) use of aspirin; Z79.899 Other long term (current) drug therapy
CPT/HCPCS: 36415; 71046; 80048; 83880; 84484; 85025; 93005; 93010; 96374; 99284-25; J1940

== ENCOUNTER 2021-01-09 02:00 | Inpatient (IN) | payer MEDICARE, OTHER ==
[~2021-01-09] VITALS: Ht 182.9 cm; Wt 120.7 kg
[2021-01-09 02:55] LABS: BASOPHILS ABSOLUTE AUTO 0.09 K/mm3 (0.00-0.23); BASOPHILS PERCENT AUTO 1 % (0-2); EOSINOPHILS ABSOLUTE AUTO 0.17 K/mm3 (0.00-0.68); EOSINOPHILS PERCENT AUTO 2 % (0-6); Hemoglobin 16.1 g/dL (13.5-17.5); IMMATURE GRAN ABSOLUTE AUTO 0.04 K/mm3 (0.00-0.10); IMMATURE GRAN PERCENT AUTO 0 % (0-1); LYMPHOCYTES ABSOLUTE AUTO 3.09 K/mm3 (0.84-5.20); LYMPHOCYTES PERCENT AUTO 27 % (21-46); MONOCYTES ABSOLUTE AUTO 0.72 K/mm3 (0.16-1.47); MONOCYTES PERCENT AUTO 6 % (4-13); Mean Corpuscular HGB 30.1 pg (26.0-34.0); Mean Corpuscular HGB Conc 34.3 g/dL (31.5-36.5); Mean Corpuscular Volume 88 fL (80-100); Mean Platelet Volume 9.5 fL (9.1-12.4); NEUTROPHILS ABSOLUTE AUTO 7.31 K/mm3 (1.96-9.15); NEUTROPHILS PERCENT AUTO 64 % (41-73); NRBC ABSOLUTE 0.02 K/mm3 (0.00-0.02); NRBC Auto 0.2 /100 WBC (0.0-0.2); Platelet Count 271 K/mm3 (150-400); RDW Coefficient Variation 14.4 % (11.7-14.2); RDW Standard Deviation 45.8 fL (35.1-46.3); Red Blood Cell Count 5.35 M/mm3 (4.30-5.90); White Blood Cell Count 11.42 K/mm3 (4.00-11.30)
[2021-01-09 03:26] LABS: Alanine Aminotransfer (ALT/SGP 54 U/L (12-78); Albumin, Blood 3.3 g/dL (3.4-5.0); Albumin/Globulin Ratio 1.1 (0.8-1.8); Alk Phos 70 U/L (50-136); Anion Gap 7 mmol/L (6-16); Aspartate Aminotrans (AST/SGOT 97 U/L (12-37); Bilirubin, Total 0.5 mg/dL (0.1-1.0); Blood Urea Nitrogen 20 mg/dL (8-24); Bun/Creatinine Ratio 18.2 (12.0-20.0); CO2, Blood 24 mmol/L (21-32); Calcium, Blood 8.5 mg/dL (8.5-10.1); Chloride, Blood 108 mmol/L (98-108); Glomerular Filtration Rate >60 (60-); Glucose, Blood 140 mg/dL (70-99); Potassium, Blood 3.5 mmol/L (3.5-5.5); Sodium, Blood 139 mmol/L (136-145); Total Protein, Blood 6.3 g/dL (6.4-8.2)
[2021-01-09 04:50] LABS: International Normalized Ratio 1.07; Prothrombin Time Results 11.5 Sec (9.7-11.5)
--- NOTE | 2021-01-09 06:46 | NUR ---
PATIENT AROUND 0635 PATIENT C/O CHEST PAIN 8/10 REPORTED "LIKE A BUBBLE, SHARP HURTS" GAVE MORPHINE 2MG IVP PAIN REPORT 5/10, MOANING GROANING AND GRIMACING, GAVE AT 0439 NITRO 4MG SUBLINGAL PAIN REPORTED 4/10 STILL GROANING, MOANING AND GRIMACING GAVE AT 0444 NITRO 4MG SUBLINGAL REPORTED 2/10 , ABLE TO HOLD CONVERSATION, NO MOANING AND GROANING AND REPORTS ITS BETTER NOW.
--- NOTE | 2021-01-09 08:00 | NUR ---
ASSUMED CARE OF PT, REPORT RCV'D FROM ANNIE SAMPSON. PT ALERT AND ORIENTED. PT HAS LABILE BEHAVIOR AND IS OCCASIONALLY UNCOOPERATIVE WITH CARE. HEPARIN INFUSING AT 13 U/KG/HR (95 KG DOSE WT). PT DENIES CHEST PAIN, COMPLAINS THAT IT IS "HARD TO BREATH" WHEN HE IS LAYING DOWN. PT SIT, BP STABLE. SEE FULL SHIFT ASSESSMENT.
[2021-01-09 08:54] LABS: CHOL/HDL RATIO 5.7; Cholesterol 181 mg/dL (50-200); HDL Cholesterol 32 mg/dL (>39); LDL/HDL RATIO 3.9; Low Density Lipoprotein Chol 125 mg/dL (0-110); Triglycerides 122 mg/dL (30-160); Very Low Density Lipoprot Chol 24 mg/dL (6-32)
--- NOTE | 2021-01-09 11:29 | NUR ---
OLVIN KELLER AND LUIS AT BEDSIDE DISCUSSING PT'S OPTIONS AND PLAN OF CARE. PT STATES THAT HE IS "LEAVING" AND WILL "WALK OVER TO [facility] AND GET A [employer] CERTIFIED NETWORK ASSOCIATE". DR. KELLER EXPLAINED IN GREAT DETAIL THE DANGERS OF LEAVING AMA. PT STATES UNDERSTANDING. PT SIGNED AMA PAPERWORK, IRIS COMPLETED. PT DRESSED HIMSELF, IV'S REMOVED AND PT WALKED OUT OF UNIT.
--- NOTE | 2021-01-09 12:08 | NUR ---
Echocardiogram completed.
== END 2021-01-09 11:20 | disposition left against medical advice (07) | DRG 291 ==
LOC: ER 02:00 → ICUW 03:57
PROVIDERS: Emergency Medicine; Internal Medicine; ADMIT Internal Medicine
DX: I11.0 Hypertensive heart disease with heart failure (principal); J96.01 Acute respiratory failure with hypoxia; I24.9 Acute ischemic heart disease, unspecified; I50.43 Acute on chronic combined systolic (congestive) and diastolic (congestive) heart failure; I42.7 Cardiomyopathy due to drug and external agent; F17.210 Nicotine dependence, cigarettes, uncomplicated; T43.625A Adverse effect of amphetamines, initial encounter; J44.9 Chronic obstructive pulmonary disease, unspecified; G47.33 Obstructive sleep apnea (adult) (pediatric); E78.5 Hyperlipidemia, unspecified; Z79.52 Long term (current) use of systemic steroids; Z79.82 Long term (current) use of aspirin; Z79.899 Other long term (current) drug therapy
CPT/HCPCS: 36415; 71045; 80053; 80061; 83036; 83880; 84484; 85025; 85610; 85730; 93005; 93010; 93306; 96374; 99285-25; A9270; J1644; J1940

== ENCOUNTER 2021-04-03 09:06 | Emergency (ER) | payer MEDICARE, OTHER ==
[~2021-04-03] VITALS: Ht 182.9 cm; Wt 90.7 kg
[2021-04-03 09:30] LABS: Chloride (POC) 105 mmol/L (98-108); Creatinine (POC) 1.4 mg/dL (0.8-1.3); Glucose (ISTAT POC) 233 mg/dL (70-99); Potassium (POC) 4.7 mmol/L (3.5-5.5); Sodium (POC) 140 mmol/L (135-148); Total CO2 (POC) 23 mmol/L (21-32)
--- NOTE | 2021-04-04 13:11 | NUR ---
Introduction: PT refered by nursing staff. Assessment: PT presented on gurney. PT next of kin(NOK) was present at bedside.NOK expressed remorse of the loss of life and was conflicted about how to inform other family members. Intervention: NOK consoled that grief is normal and appropriate. Outcome: NOK seemed comforted by the assurance and presence of the Spiritual Care Team. Follow-Up: As needed or requested.
== END 2021-04-05 09:34 ==
LOC: ER 09:06
PROVIDERS: Emergency Medicine
DX: I46.9 Cardiac arrest, cause unspecified (principal); I11.0 Hypertensive heart disease with heart failure; I50.9 Heart failure, unspecified; Z79.82 Long term (current) use of aspirin; Z79.899 Other long term (current) drug therapy
CPT/HCPCS: 36415; 80047; 85014; 92950; 96374-59; 96375-59; 99285-25